=== PATIENT | female | born 1990 | race African-American/Black ===

== ENCOUNTER 2017-07-11 09:59 | Emergency (ER) | payer MEDICAID ==
[~2017-07-11] VITALS: Ht 152.4 cm; Wt 92.0 kg
[2017-07-11 10:23] VITALS: BP 141/81; PULSE 85; RESP 20; TEMP 98.7; O2SAT 100
[2017-07-11 12:03] LABS: BACTERIA, URINE OCC /hpf; BILIRUBIN, URINE NEG (NEG); BLOOD, URINE NEG (NEG); GLUCOSE,URINE NEG (NEG); KETONE, URINE 40 mg/dL (NEG); MUCUS URINE FEW /lpf (OCC); NITRITE,URINE NEG (NEG); SQUAMOUS EPITHELIAL CELL URINE 8 /hpf (0-5); URINE COLOR YELLOW (YELLW/STRAW); URINE LEUKOCYTE ESTERASE NEG (NEG)
--- NOTE | 2017-07-11 12:04 | PD ---
HPI . Spotting Chief Complaint: Related Problem Time Seen by Provider: 10:44 Travel History International Travel<30 days: No Contact w/Intl Traveler<30days: No Traveled to known affect area: No History of Present Illness HPI This patient presents stating that she is 13 weeks and that she had some spotting this morning. She denies any urinary tract symptoms. She states that the spotting has now resolved. She does not know her blood type. She has not yet had any care. Symptoms started this morning and have resolved. Symptoms were mild. [facility] Past Medical History Medical History: Denies Significant Hx Diminished Hearing: No ?: Past Surgical History Surgical History: No Previous Surgery Social History Alcohol Use: No Tobacco Use: No Substance Use: No Allergies-Medications (Allergen,Severity, Reaction): Coded Allergies: No Known Allergies (Verified Allergy, Unknown, 07/11/17) Review of Systems Except as stated in HPI: all other systems reviewed are Neg Physical Exam Narrative GENERAL: Awake and alert and in no acute distress. SKIN: Warm and dry. Normal color and turgor. HEAD: Normocephalic/atraumatic. EYES: Pupils are equal. Extraocular movements are intact. NECK: Normal range of motion. Supple. CARDIOVASCULAR: Regular rate and rhythm. RESPIRATORY: Nonlabored respirations. Normal sats. ABDOMEN: Soft and nontender. MUSCULOSKELETAL: Atraumatic. Normal muscle tone. NEUROLOGICAL: A and O 3. Nonfocal. PSYCHIATRIC: Appropriate mood and affect. Data Data Last Documented VS Vital Signs Date Time Temp Pulse Resp B/P (MAP) Pulse Ox O2 Delivery O2 Flow Rate FiO2 07/11/17 10:23 98.7 85 20 141/81 (101) 100 Orders Orders Complete Rh (07/11/17 10:46) Urinalysis - C+S If Indicated (07/11/17 10:46) Ed Poc Ultrasound (07/11/17 10:46) Labs Laboratory Tests Test 07/11/17 11:27 Urine Color YELLOW Urine Turbidity HAZY Urine pH 7.0 Urine Specific [place] 1.022 Urine Protein TRACE mg/dL Urine Glucose (UA) NEG mg/dL Urine Ketones 40 mg/dL Urine Occult Blood NEG Urine Nitrite NEG Urine Bilirubin NEG Urine Urobilinogen LESS THAN 2.0 MG/DL Urine Leukocyte Esterase NEG Urine RBC LESS THAN 1 /hpf Urine WBC 3 /hpf Urine Squamous Epithelial Cells 8 /hpf Urine Bacteria OCC /hpf Urine Mucus FEW /lpf Microscopic Urinalysis Comment CULT NOT INDICATED MDM Medical Decision Making Medical Screen Exam Complete: Yes Emergency Medical Condition: Yes Differential Diagnosis Differential diagnosis of bleeding in includes but is not limited to physiologic bleeding, spontaneous AB, ectopic , placenta previa Narrative Course This is a patient who is 13 weeks by dates who presents complaining with spotting this morning. She does not know her blood type. Group and Rh is pending. UA is also pending to rule out UTI. UA negative for infection Blood type B+ Procedures Procedure Narrative Emergency Department Pelvic ultrasound was performed with patient consent. The curvilinear probe was used in the transverse and sagittal views within the suprapubic region revealing positive intrauterine . heart rate was 158 with positive movement. Diagnosis Primary Impression: Bleeding in early Patient Instructions: General Instructions, (DC) Disposition: 01 DISCHARGE HOME Condition: Stable Caryn Farr MD Jul 11, 2017 12:04
== END 2017-07-11 12:33 | disposition home or self-care (01) ==
LOC: NEPD 09:59
DX: O20.9 Hemorrhage in early pregnancy, unspecified (principal); Z3A.13 13 weeks gestation of pregnancy
CPT/HCPCS: 81001; 86901; 99284